=== PATIENT | male | born 1935 | race Caucasian/White ===

== ENCOUNTER 2018-08-21 11:33 | Emergency (ER) | payer MEDICARE ==
[2018-08-21] MEDS ORDERED: Lidocaine 1% (PF) 30 ML VIAL ONE (13:11)
[2018-08-21] MEDS ORDERED: Adacel (T-DAP) 0.5 ML SYRINGE ONE (13:30)
--- NOTE | 2018-08-21 13:34 | CT ---
CT BRAIN WITHOUT CONTRAST: HISTORY: Injury. Fall. COMPARISON: None. FINDINGS: Prepontine aneurysm clip is present. No acute hemorrhage or infarct. No midline shift or mass effec t. Ventricular size and extraaxial CSF spaces are normal. The calvarium is intact. The paranasal sinuses and mastoids are clear. IMPRESSION: No acute intracranial abnormality. POS: H
[2018-08-21] MEDS ORDERED: Bacitracin Zinc 1 Packet ONE (13:36)
== END 2018-08-21 13:48 | disposition home or self-care (01) ==
LOC: NAV ERS 11:33
DX: S01.81XA Laceration without foreign body of other part of head, initial encounter (principal); I25.2 Old myocardial infarction; E78.5 Hyperlipidemia, unspecified; Z87.891 Personal history of nicotine dependence; Z79.82 Long term (current) use of aspirin; Z79.899 Other long term (current) drug therapy; W11.XXXA Fall on and from ladder, initial encounter
CPT/HCPCS: 12013; 70450; 90471; 90715; J2001

== ENCOUNTER 2018-08-28 10:01 | Emergency (ER) | payer MEDICARE | END 2018-08-28 10:22 | disposition home or self-care (01) | LOC: NAV ERS 10:01 | DX: S01.81XD Laceration without foreign body of other part of head, subsequent encounter (principal); I25.2 Old myocardial infarction; N40.0 Benign prostatic hyperplasia without lower urinary tract symptoms; E78.5 Hyperlipidemia, unspecified; I10 Essential (primary) hypertension; I72.9 Aneurysm of unspecified site; Z87.891 Personal history of nicotine dependence; Z79.899 Other long term (current) drug therapy ==